=== PATIENT | male | born 1960 | race African-American/Black ===

== ENCOUNTER 2021-11-22 19:14 | Emergency (ER) | payer OTHER ==
--- NOTE | 2021-11-23 07:17 | Emergency Department Report ---
ED Dizziness HPI - General Chief Complaint: Dizziness Stated Complaint: DIZZY Time Seen by Provider: 11/23/21 06:57 Source: patient Mode of arrival: Ambulatory Limitations: No Limitations - History of Present Illness Initial Comments: 61-year-old male who reports prior history "of the same thing 15 years ago" presents for evaluation of sensation of the room spinning. Patient reports onset was approximately 4 days ago. He is unclear what he was doing at the time when his symptoms began. Patient states 3 days ago he went to a local urgent care center "and they gave me medicine and I thought it was helping but it makes me feel worse." Patient states symptoms occur only with going from sitting to lying or from lying to sitting up and also with head turning, primarily when his head is turned to the right. He states he feel nauseated "like I want to throw up." When his symptoms occur. Symptoms alleviated by rest. No vomiting fevers or chills. No weakness in arms or legs, no difficulty talking walking or word finding. He repeatedly denies any head trauma. No tingling or numbness. No dental pain. No sore throat. No earaches. No hearing changes. Pain 0/10. Patient states he occasionally smokes cigarettes. Denies any alcohol or illegal drug usage. MD Complaint: dizziness, other (pt states "room is spinning around and around when i sit up or when I turn my head") -: Gradual, days(s) (4 days) Timing: gradual onset, intermittent, now resolved Description: "room spinning" History of Same: Yes (pt states he had this same symptoms 15 yrs ago; was also seen at [facility] [place]) History of Trauma: No Severity: moderate Improves With: remaining still Worsens With: nothing Associated Symptoms: denies: ataxia, chest pain, confusion, diaphoresis, fever/chills, loss of appetite, malaise, seizure, shortness of breath, syncope, weakness - Related Data Allergies Allergy/AdvReac Type Severity Reaction Status Date / Time No Known Allergies Allergy Verified 11/23/21 07:35 ED Review of Systems ROS: Stated complaint: DIZZY Other details as noted in HPI Comment: All other systems reviewed and negative Constitutional: no symptoms reported Eyes: denies: eye pain, eye discharge, vision change ENT: denies: ear pain, throat pain, dental pain, hearing loss Respiratory: denies: cough, orthopnea, shortness of breath, SOB with exertion, SOB at rest, stridor Cardiovascular: denies: chest pain, palpitations, dyspnea on exertion, orthopnea, edema, syncope, paroxysmal nocturnal dyspnea, other Endocrine: no symptoms reported. denies: excessive sweating, flushing, intolerance to cold, intolerance to heat, increased hunger, increased thirst, increased urine, unexplained weight gain, unexplained weight loss Gastrointestinal: as per HPI, nausea. denies: abdominal pain, vomiting, diarrhea, constipation, hematemesis, hematochezia Genitourinary: denies: urgency, dysuria, frequency, hematuria, discharge, testicular pain, testicular mass Musculoskeletal: denies: back pain, joint swelling, arthralgia, myalgia Skin: denies: rash, lesions, change in color, change in hair/nails, pruritus Neurological: as per HPI, vertigo. denies: headache, weakness, paresthesias, confusion, abnormal gait, other Psychiatric: denies: anxiety, depression, auditory hallucinations, visual szymanski ucinations, homicidal thoughts, suicidal thoughts Hematological/Lymphatic: denies: as per HPI, easy bleeding, easy bruising, swollen glands ED Past Medical Hx - Past Medical History Previous Medical History?: No - Surgical History Past Surgical History?: No - Family History Family history: no significant - Social History Smoking Status: Current Some Day Smoker Substance Use Type: None ED Physical Exam - General Limitations: No Limitations, Language Barrier General appearance: alert, in no apparent distress - Head Head exam: Present: atraumatic, normocephalic, normal inspection - Eye Eye exam: Present: normal appearance, PERRL, EOMI Pupils: Present: normal accommodation - ENT ENT exam: Present: normal exam, normal orophraynx, mucous membranes moist, TM's normal bilaterally - Neck Neck exam: Present: normal inspection, full ROM. Absent: tenderness, meningismus, lymphadenopathy, thyromegaly - Respiratory Respiratory exam: Present: normal lung sounds bilaterally, respiratory distress. Absent: wheezes, rales, rhonchi, stridor, chest wall tenderness, accessory muscle use, decreased breath sounds, prolonged expiratory - Cardiovascular Cardiovascular Exam: Present: regular rate, normal rhythm, normal heart sounds. Absent: bradycardia, tachycardia, irregular rhythm, systolic murmur, diastolic murmur, rubs, gallop, clicks, JVD, S3, S4 - GI/Abdominal GI/Abdominal exam: Present: soft, normal bowel sounds. Absent: distended, tenderness, guarding, rebound, rigid, diminished bowel sounds, hyperactive bowel sounds, hypoactive bowel sounds, organomegaly, mass, bruit, pulsatile mass, hernia - Rectal Rectal exam: Present: deferred - Extremities Exam Extremities exam: Present: normal inspection, full ROM, tenderness, normal capillary refill. Absent: pedal edema, joint swelling - Back Exam Back exam: Present: normal inspection, full ROM. Absent: tenderness, CVA tenderness (R), CVA tenderness (L), muscle spasm, paraspinal tenderness, vertebral tenderness, rash noted - Neurological Exam Neurological exam: Present: alert, oriented X3, CN II-XII intact, normal gait, reflexes normal, other (+mckinley hallpike maneuver : symptoms reproduced when head turned to the pt's right) - Psychiatric Psychiatric exam: Present: normal affect, normal mood - Skin Skin exam: Present: warm, dry, intact, normal color. Absent: rash, cyanosis, di aphoretic, erythema, urticaria, vesicles, petechiae, pallor, abrasion, ecchymosis ED Course Vital Signs 11/22/21 11/23/21 11/23/21 19:31 04:45 04:51 Temperature 98.0 F Pulse Rate 81 68 73 Pulse Rate [ Lying] Pulse Rate [ Sitting] Pulse Rate [ Standing] Respiratory 18 19 18 Rate Blood Pressure 142/89 Blood Pressure 156/89 [Left] Blood Pressure [Lying] Blood Pressure [Sitting] Blood Pressure [Standing] O2 Sat by Pulse 96 97 99 Oximetry 11/23/21 11/23/21 11/23/21 05:01 05:15 05:31 Temperature Pulse Rate 67 73 74 Pulse Rate [ Lying] Pulse Rate [ Sitting] Pulse Rate [ Standing] Respiratory 20 20 16 Rate Blood Pressure 156/89 156/89 156/89 Blood Pressure [Left] Blood Pressure [Lying] Blood Pressure [Sitting] Blood Pressure [Standing] O2 Sat by Pulse 99 99 99 Oximetry 11/23/21 11/23/21 11/23/21 05:45 06:01 06:15 Temperature Pulse Rate 69 69 70 Pulse Rate [ Lying] Pulse Rate [ Sitting] Pulse Rate [ Standing] Respiratory 15 15 15 Rate Blood Pressure 156/89 141/86 141/86 Blood Pressure [Left] Blood Pressure [Lying] Blood Pressure [Sitting] Blood Pressure [Standing] O2 Sat by Pulse 99 99 99 Oximetry 11/23/21 11/23/21 11/23/21 06:31 06:45 07:01 Temperature Pulse Rate 77 72 72 Pulse Rate [ Lying] Pulse Rate [ Sitting] Pulse Rate [ Standing] Respiratory 17 16 17 Rate Blood Pressure 141/86 141/86 141/86 Blood Pressure [Left] Blood Pressure [Lying] Blood Pressure [Sitting] Blood Pressure [Standing] O2 Sat by Pulse 99 99 99 Oximetry 11/23/21 11/23/21 11/23/21 07:15 07:30 07:45 Temperature Pulse Rate 72 67 69 Pulse Rate [ Lying] Pulse Rate [ Sitting] Pulse Rate [ Standing] Respiratory 18 14 21 Rate Blood Pressure 141/86 141/86 141/86 Blood Pressure [Left] Blood Pressure [Lying] Blood Pressure [Sitting] Blood Pressure [Standing] O2 Sat by Pulse 99 99 99 Oximetry 11/23/21 11/23/21 11/23/21 08:01 08:07 08:15 Temperature Pulse Rate 75 75 Pulse Rate [ 86 Lying] Pulse Rate [ 83 Sitting] Pulse Rate [ 87 Standing] Respiratory 16 20 Rate Blood Pressure 150/87 142/96 Blood Pressure [Left] Blood Pressure 134/74 [Lying] Blood Pressure 146/89 [Sitting] Blood Pressure 142/96 [Standing] O2 Sat by Pulse 99 99 Oximetry 11/23/21 11/23/21 11/23/21 08:31 08:45 09:01 Temperature Pulse Rate 75 80 70 Pulse Rate [ Lying] Pulse Rate [ Sitting] Pulse Rate [ Standing] Respiratory 23 22 14 Rate Blood Pressure 142/96 142/96 142/96 Blood Pressure [Left] Blood Pressure [Lying] Blood Pressure [Sitting] Blood Pressure [Standing] O2 Sat by Pulse 99 98 98 Oximetry 11/23/21 11/23/21 11/23/21 09:15 09:31 09:39 Temperature Pulse Rate 75 66 Pulse Rate [ Lying] Pulse Rate [ Sitting] Pulse Rate [ Standing] Respiratory 18 16 Rate Blood Pressure 142/96 142/96 Blood Pressure [Left] Blood Pressure [Lying] Blood Pressure [Sitting] Blood Pressure [Standing] O2 Sat by Pulse 99 98 98 Oximetry - Reevaluation(s) Reevaluation #1: 11/23/21 pt is comfortable and well appearing; moving all extremities, vss; denies any symptoms ED Medical Decision Making - Lab Data Result diagrams: 11/23/21 07:32 11/23/21 07:32 - Radiology Data Radiology results: report reviewed - Medical Decision Making 61-year-old male with self-reported prior episode of "the same thing" 15 years ago per his report, presents for evaluation of intermittent recurrent dizziness which she describes as "the room is spinning when my head turns or I sit up or sit back." Vital signs stable. Orthostatic vitals unremarkable. Serum labs grossly unremarkable. Head CT negative for any acute pathology. Patient ordered for Reglan and meclizine. He denies any recurrent symptoms after having been treated. NIH score reassessed multiple times by me at his bedside and it is 0 with each assessment. Patient stable for discharge to home. Prior to discharge patient was given strict verbal and written return precautions. Patient verbalized understanding agree with the plan of care. Critical care attestation.: If time is entered above; I have spent that time in minutes in the direct care of this critically ill patient, excluding procedure time. ED Disposition Clinical Impression: Vertigo Disposition: 01 HOME / SELF CARE / HOMELESS Is pt being admited?: No Condition: Stable Instructions: Dizziness, [id number] Additional Instructions: Please take meclizine 25mg by mouth, 1-3 times a day, as needed for dizziness. You were prescribed this medication by the urgent care at which you were seen. Continue this prescription. Follow up with a doctor in 2-3 days to establish care and also to undergo reevaluation. This is very important. Return to the nearest emergency department as soon as possible if you develop severe or worsening dizziness, headaches, difficulty talking/walking/word finding, or if any other new worrisome symptoms develop. Referrals: PRIMARY MD ABRAHAM [Primary Care Provider] - 3-5 Days AALIYAH RUTH MD [Staff Physician] - 3-5 Days
[2021-11-23] MEDS ORDERED: METOCLOPRAMIDE 10 MG/2 ML INJ IV SCH (07:30)
[2021-11-23 07:39] LABS: Hematocrit 46.7 % (35.5-45.6); Hemoglobin 15.1 gm/dl (11.8-15.2); Mean Corpuscular HGB Conc 32 % (32-34); Mean Corpuscular Volume 92 fl (84-94); Platelet Count 280 K/mm3 (140-440); Red Blood Count 5.08 M/mm3 (3.65-5.03); Red Cell Distribution Width 13.4 % (13.2-15.2)
[2021-11-23 07:45] LABS: Basophils # (Auto) 0.1 K/mm3 (0.0-0.1); Basophils % (Auto) 0.9 % (0.0-1.8); Eosinophils # (Auto) 0.2 K/mm3 (0.0-0.4); Eosinophils % (Auto) 1.7 % (0.0-4.3); Lymphocytes # (Auto) 2.6 K/mm3 (1.2-5.4); Lymphocytes % (Auto) 27.8 % (13.4-35.0); Monocytes # (Auto) 0.7 K/mm3 (0.0-0.8); Monocytes % (Auto) 7.6 % (0.0-7.3)
--- NOTE | 2021-11-23 07:55 | Cat Scan Report ---
CT HEAD WITHOUT CONTRAST INDICATION / CLINICAL INFORMATION: dizziness. TECHNIQUE: CT head was performed without administration of intravenous contrast. All CT scans at this location are performed using CT dose reduction for ALARA by means of automated exposure control. COMPARISON: None available. FINDINGS: CEREBRAL HEMISPHERES: There is no evidence of large territorial infarction or significant abnormality of hurt-white matter differentiation. Ventricles within normal limits. No midline shift. Basal ciste rns patent. HEMORRHAGE: None. CEREBELLUM / BRAINSTEM: No significant abnormality. ORBITS: No significant abnormality. SOFT TISSUES: No significant abnormality. SKULL: No significant abnormality. PARANASAL SINUSES / MASTOID AIR CELLS: Normal as visualized. ADDITIONAL FINDINGS: None. IMPRESSION: 1. No acute intracranial abnormality. Signer Name: Omar Medrano II, MD Signed: 11/23/2021 7:51 AM Workstation Name: [id number]
[2021-11-23 07:59] LABS: Alanine Aminotransferase 13 units/L (7-56); Albumin 4.2 g/dL (3.9-5); BUN/Creatinine Ratio 20; Blood Urea Nitrogen 18 mg/dL (9-20); Calcium 9.2 mg/dL (8.4-10.2); Hemolysis Index 4
[2021-11-23] MEDS ORDERED: SODIUM CHLORIDE 0.9% 500 ML 500 ML IV ONE (08:30)
[2021-11-23] MEDS ORDERED: MECLIZINE 25 MG TAB PO ONE ×2 (10:07→13:00)
[2021-11-23 12:34] VITALS: BP 117/65
== END 2021-11-23 12:21 | disposition home or self-care (01) ==
LOC: ED 19:14
DX: R42 Dizziness and giddiness (principal); F17.200 Nicotine dependence, unspecified, uncomplicated
CPT/HCPCS: 36415; 70450; 80053; 85025; 96374; 99284; J2765; J7040; 80320; 96361; G0480